=== PATIENT | female | born 1970 | race Caucasian/White ===

== ENCOUNTER 2017-12-19 11:21 | Emergency (ER) | payer OTHER, BC ==
[~2017-12-19] VITALS: Ht 170.2 cm; Wt 70.3 kg
[~2017-12-19 11:21] MED LIST: ACCUNEB SO1.25 MG/1; ALBUTEROL2.5 MG/0.1 INH; ARIXTRA; ARIXTRA SQ; ASA5UEC; BENTYL 10 MG CA10 M1 PO; CELEBREX 200 M200 M1 PO; CIPROFLOXACIN500 M1 PO; COLACE 100 MG100 MG; COLACE100 MG PO; CYMBALTA60 MG PO; GABAPENTIN 100100 MG PO; HUMIRA40 MG/0.8 SUBQ; HYDROCODON-ACE1 EACH PO; HYDROCODONE-AP1 EAC6 PO; HYDROCODONE-APA1 TA1 PO; IBUPROFEN 400400 M2 PO; LEXAPRO20 MG PO; MIRALAX255 GM; MOBIC7.5 MG; NORCO 10-325 T1 EACH PO; NORCO 5-325 TA1 EACH PO; OMEPRAZOLE40 MG PO; OTEZLA30 MG PO; OXYIR5 MG; PERCOCET 5-3251 EACH; PRILOSEC 20 MG20 MG; PROTONIX40 M1 PO; PROVENTIL INH; TRAMADOL 50 MG50 MG; TRAMADOL 50 MG50 MG PO; VITAMIN D1000 UNI1 PO; WELLBUTRIN 75 M75 M1 PO; ZOFRAN4 MG
[2017-12-19] MEDS ORDERED: DIPROLENE 0.05%15 GM TOP (11:30)
[2017-12-19] MEDS ORDERED: ESTRADIOL 1 MG T1 M1 PO (11:30)
[2017-12-19] MEDS ORDERED: LEVSIN0.125 MG PO (11:31)
[2017-12-19] MEDS ORDERED: XIFAXAN550 M1 PO (11:31)
[2017-12-19 12:01] LABS: HEMATOCRIT 43.5 % (37.0-47.0); HEMOGLOBIN 14.6 gm/dL (12.0-15.0); MCH 32.1 pg (26.0-34.0); MCHC 33.5 g/dL (28.0-37.0); MCV 95.8 fL (80.0-100.0); MPV 9.1 fl. (7.2-11.1); NUCLEATED RBCS 0 /100WBC; PLATELET COUNT* 154 thou/uL (150-400); RBC 4.55 mil/uL (4.20-5.00); WBC 7.9 thou/uL (4.0-11.0)
[2017-12-19 12:12] LABS: CALCIUM 8.7 mg/dL (8.5-10.1); CREATININE 0.7 mg/dL (0.6-1.3); POTASSIUM 3.7 mmol/L (3.5-5.1)
[2017-12-19 12:17] LABS: ALBUMIN 3.7 g/dL (3.4-5.0); TOTAL BILIRUBIN 0.8 mg/dL (<0.1-1.0); TOTAL PROTEIN 7.5 g/dL (6.4-8.2)
[2017-12-19 12:31] LABS: ABSOLUTE LYMPHOCYTES 0.4 thou/uL (0.8-5.3); ABSOLUTE MONOCYTES 0.2 thou/uL (0.0-1.2); ABSOLUTE NEUTROPHILS 7.3 thou/uL (1.6-8.1); PLATELET ESTIMATE ADEQUATE
[2017-12-19 13:49] LABS: URINE BILIRUBIN NEGATIVE (Negative); URINE BLOOD TRACE (Negative); URINE CLARITY CLEAR; URINE COLOR YELLOW; URINE GLUCOSE-RANDOM NEGATIVE (Negative); URINE KETONES 1+ (Negative); URINE NITRITE-REFLEX NEGATIVE (Negative); URINE PROTEIN NEGATIVE (Negative); URINE SPECIFIC GRAVITY 1.025 (1.005-1.030); URINE UROBILINOGEN 0.2 E.U./dl (0.2-1.0)
[2017-12-19] MEDS ORDERED: BENTYL 20 MG TA20 M1 PO (13:49)
[2017-12-19] MEDS ORDERED: NORCO 5-325 TA1 EACH PO (13:49)
[2017-12-19] MEDS ORDERED: ZOFRAN ODT4 MG PO (13:49)
[2017-12-19 13:57] LABS: URINE LEUKOCYTES-REFLEX 2+ (Negative)
[2017-12-19 14:08] VITALS: BP 119/65
[2017-12-19 14:09] LABS: CASTS None Seen /LPF (None Seen); MUCUS 0-3 Light strn/LPF (None Seen); SQUAMOUS >10 Many /LPF (0-3); URINE RBC 0-2 Rare /HPF (0-2)
[2017-12-19 14:10] LABS: CRYSTALS None Seen /LPF (None Seen)
== END 2017-12-19 14:09 | disposition home or self-care (01) ==
LOC: M.ERS 11:21
PROVIDERS: Personal Emergency Response Attendant
DX: K52.9 Noninfective gastroenteritis and colitis, unspecified (principal); J45.909 Unspecified asthma, uncomplicated; Z88.1 Allergy status to other antibiotic agents; Z91.041 Radiographic dye allergy status; Z91.040 Latex allergy status; Z88.8 Allergy status to other drugs, medicaments and biological substances; Z90.710 Acquired absence of both cervix and uterus; Z96.653 Presence of artificial knee joint, bilateral